=== PATIENT | female | born 1940 | race Caucasian/White ===

== ENCOUNTER 2017-07-05 14:10 | Emergency (ER) | payer OTHER ==
[~2017-07-05] VITALS: Ht 160 cm; Wt 75.0 kg
[2017-07-05 14:13] VITALS: TEMP 36.8; Ht 160 cm; Wt 75.0 kg
[2017-07-05] MEDS ORDERED: SODIUM CHLORIDE 0.9% 1000ML 1,000 ML IV STA (15:39)
[2017-07-05] MEDS ORDERED: KETOROLAC TROMETHAMINE 30 MG/ML VIAL IV STA (15:39)
[2017-07-05] MEDS ORDERED: INSDGI SC (16:15)
[2017-07-05] MEDS ORDERED: AMLO-110 PO (16:15)
[2017-07-05] MEDS ORDERED: BCTCR/30 TOP (16:15)
[2017-07-05] MEDS ORDERED: HYZ/10015 PO (16:15)
[2017-07-05] MEDS ORDERED: GLIP10TA9 PO (16:15)
[2017-07-05] MEDS ORDERED: METF-384 PO (16:15)
[2017-07-05] MEDS ORDERED: DOXY-300 PO (16:15)
[2017-07-05 16:26] LABS: MEAN CELL VOLUME 89.7 fL (80-100); MEAN CORPUSCULAR HEMOGLOBIN 30.9 pg (25-34); MEAN CORPUSCULAR HGB CONC 34.4 g/dl (32-36); PLATELET COUNT 333 K/uL (130-400); RED BLOOD COUNT 3.79 M/uL (4.2-5.4)
[2017-07-05 16:42] LABS: BUN/CREATININE RATIO 20.6 (10-20); C-REACTIVE PROTEIN 15.4 mg/dl (0-0.29); CALCIUM 9.3 mg/dl (8.5-10.1); CREATININE 1.3 mg/dl (0.60-1.20); POTASSIUM 4.1 mmol/L (3.5-5.1)
[2017-07-05 16:50] LABS: BASO % 0.3 %; BASO ABS # 0.05 K/uL (0-0.2); COMPLETE YES; EOS % 0.4 %; IG% 0.7 %; LYMPH % 9.5 %; LYMPH ABS # 1.67 K/uL (1.2-3.4); MONO % 4.7 %; NEUT % 84.4 %
[2017-07-05 16:51] LABS: THYROID STIMULATING HORMONE 0.858 uIu/ml (0.300-4.500)
--- NOTE | 2017-07-05 17:56 | EMERGENCY ROOM VISIT NOTE ---
History First contact with patient: 15:18 Chief Complaint: SWELLING TO EXTREMITY Stated Complaint: SWOLLEN ANKLES, SORETHROAT, LEG PAIN, LT ARM MOVEM History of Present Illness The patient is a 77 year old female who presents to the Emergency Room with complaints of bilateral wrist and ankle pain/swelling. Patient states her symptoms began about 3 months ago, starting with pain and a red rash over her right ankle. She began to have pain and swelling in her left ankle 2 weeks ago. She has seen her PCP who has done blood work including a Lyme titer which was negative. She also had an MRI of her right ankle, which did not show anything abnormal per the patient. Yesterday she saw her PCP and was started on doxycycline, of which she has had 3 doses. Since last night, patient has been having bilateral wrist and elbow pain and swelling as well. Patient states "I am here because I'm just not getting any better and I want some answers." Patient denies any headaches, vision changes, neck pain, chest pain, shortness of breath, dizziness or passing out, abdominal pain, back pain, nausea or vomiting, fevers or chills, changes in bowel habits, dysuria or urinary frequency. She has not had any other recent medication changes besides the doxycycline. Review of Systems A complete 10 point review of systems was reviewed with the patient with pertinent positives and negatives as per history of present illness. All else were negative. Social History Smoking Status: Never Smoker Current/Historical Medications Scheduled Amlodipine (Norvasc), 5 MG PO QAM Doxycycline (Monohydrate) (Doxycycline), 100 MG PO BID Glipizide (Glucotrol), 10 MG PO BID Hctz/Losartan (Hyzaar 25MG/100MG), 1 TAB PO QAM Insulin Glargine (Lantus), 21 UNITS SC QPM Metformin Hcl (Glucophage), 1,000 MG PO BID Mupirocin 2% (Bactroban 2%), 1 APPLN TOP BID Prednisone (Prednisone Tab), 1 TAB PO DAILY Physical Exam Vital Signs Date Time Temp Pulse Resp B/P (MAP) Pulse Ox O2 Delivery O2 Flow Rate FiO2 07/05/17 19:07 82 20 139/76 96 07/05/17 17:36 89 20 146/78 98 Room Air 07/05/17 16:09 89 07/05/17 14:13 36.8 101 18 119/63 97 Room Air Physical Exam CONSTITUTIONAL: No acute distress. Moderately dehydrated. Alert and oriented X 4 with normal affect. HEENT: Normocephalic, atraumatic. Pupils equal, round and reactive to light, EOMI. TMs normal. Pharynx normal. Dry mucous membranes. NECK: Supple, full active range of motion without discomfort. RESPIRATORY: Clear to auscultation bilaterally with no wheezing, crackles, rhonchi or stridor. Equal expansion bilaterally. CARDIOVASCULAR: Regular rate and rhythm, 3/6 systolic murmur, no rubs or gallops. Normal peripheral perfusion. No pitting edema. GASTROINTESTINAL: Soft, nontender, nondistended. Bowel sounds present in all quadrants. MUSCULOSKELETAL: There is mild swelling of the bilateral ankles and wrists, tender to palpation and with range of motion, blanching red rash noted, not hot to touch or erythematous. Limited range of motion of the left elbow due to pain , full flexion but unable to fully extend. Full range of motion of all other joints without discomfort. INTEGUMENTARY: No significant dermatologic conditions noted. NEUROLOGIC: Cranial nerves II-XII grossly intact. No focal neurologic deficits noted. Medical Decision & Procedures Laboratory Results 07/05/17 16:05 Red Blood Count 3.79, Mean Corpuscular Volume 89.7, Mean Corpuscular Hemoglobin 30.9, Mean Corpuscular Hemoglobin Concent 34.4, Mean Platelet Volume 9.0, Neutrophils (%) (Auto) 84.4, Lymphocytes (%) (Auto) 9.5, Monocytes (%) (Auto) 4.7, Eosinophils (%) (Auto) 0.4, Basophils (%) (Auto) 0.3, Neutrophils # (Auto) 14.76, Lymphocytes # (Auto) 1.67, Monocytes # (Auto) 0.82, Eosinophils # (Auto) 0.07, Basophils # (Auto) 0.05 07/05/17 16:05 Test 07/05/17 16:05 07/05/17 16:21 White Blood Count 17.50 K/uL (4.8-10.8) Red Blood Count 3.79 M/uL (4.2-5.4) Hemoglobin 11.7 g/dL (12.0-16.0) Hematocrit 34.0 % (37-47) Mean Corpuscular Volume 89.7 fL (80-100) Mean Corpuscular Hemoglobin 30.9 pg (25-34) Mean Corpuscular Hemoglobin Concent 34.4 g/dl (32-36) Platelet Count 333 K/uL (130-400) Mean Platelet Volume 9.0 fL (7.4-10.4) Neutrophils (%) (Auto) 84.4 % Lymphocytes (%) (Auto) 9.5 % Monocytes (%) (Auto) 4.7 % Eosinophils (%) (Auto) 0.4 % Basophils (%) (Auto) 0.3 % Neutrophils # (Auto) 14.76 K/uL (1.4-6.5) Lymphocytes # (Auto) 1.67 K/uL (1.2-3.4) Monocytes # (Auto) 0.82 K/uL (0.11-0.59) Eosinophils # (Auto) 0.07 K/uL (0-0.5) Basophils # (Auto) 0.05 K/uL (0-0.2) RDW Standard Deviation 40.5 fL (36.4-46.3) RDW Coefficient of Variation 12.4 % (11.5-14.5) Immature Granulocyte % (Auto) 0.7 % Immature Granulocyte # (Auto) 0.13 K/uL (0.00-0.02) Erythrocyte Sedimentation Rate 72 mm/hr (0-21) Anion Gap 8.0 mmol/L (3-11) Est Creatinine Clear Calc Drug Dose 35.7 ml/min Estimated GFR () 46.2 Estimated GFR (Non- 39.8 BUN/Creatinine Ratio 20.6 (10-20) Uric Acid 4.0 mg/dl (2.6-7.2) Calcium Level 9.3 mg/dl (8.5-10.1) Total Bilirubin 0.7 mg/dl (0.2-1) Direct Bilirubin 0.2 mg/dl (0-0.2) Aspartate Amino Transf (AST/SGOT) 44 U/L (15-37) Alanine Aminotransferase (ALT/SGPT) 79 U/L (12-78) Alkaline Phosphatase 143 U/L (45-117) Total Creatine Kinase 26 U/L (26-192) C-Reactive Protein 15.40 mg/dl (0-0.29) Total Protein 7.4 gm/dl (6.4-8.2) Albumin 3.0 gm/dl (3.4-5.0) Thyroid Stimulating Hormone (TSH) 0.858 uIu/ml (0.300-4.500) Anti-Streptolysin O Antibody Screen NEG IU/ml (<200 IU) Bedside Lactic Acid Venous 1.78 mmol/L (0.90-1.70) Medications Administered Medications (Trade) Dose Ordered Sig/Mary Route Start Time Stop Time Status Last Admin Dose Admin Sodium Chloride 1,000 ml @ 999 mls/hr Q1H1M STAT IV 07/05/17 15:39 07/05/17 16:39 DC 07/05/17 16:36 999 MLS/HR Ketorolac Tromethamine (Toradol Inj) 15 mg NOW STAT IV 07/05/17 15:39 07/05/17 15:44 DC 07/05/17 16:36 15 MG Prednisone (PredniSONE TAB) 40 mg NOW STAT PO 07/05/17 17:34 07/05/17 17:37 DC 07/05/17 17:42 40 MG Medical Decision CC: Patient presenting with complaint of joint pain Interpretation of Labs: Leukocytosis, no anemia, no significant loculated abnormalities, elevated BUN and creatinine, slightly elevated liver enzymes, normal lactic acid level, significantly elevated inflammatory markers, normal CPK. Differential Diagnosis: Includes, but not limited to autoimmune/rheumatologic disorder, polyarthralgias, polymyalgia, dehydration, electrolyte abnormalities, less likely septic joint or joint infection, Lyme disease. Medication Reconciliation: I attest that I have personally reviewed the patient' s current medication list. Vital signs review: I reviewed the patient's vital signs and interpret them as follows: T: Afebrile; BP: Normotensive; HR: Mildly tachycardic; RR: Within normal limits; Pulse Ox: Within normal limits on room air. Blood pressure screening: The patient was found to have normal blood pressure on screening and does not require follow-up for repeat blood pressure check. Summary: Patient was evaluated at bedside, history of physical exam performed. Patient is alert and in no acute distress, resting calmly in the stretcher. Patient has mild swelling and pain of the bilateral wrists and ankles, left elbow, worse with flexion and extension of the joints. She is afebrile with stable vital signs. She has no other complaints. Records requested from patient's PCP including labs and recent visit. These were reviewed. Orders were placed at bedside for labs including inflammatory markers and lactic acid, IV fluids for hydration, IV Toradol for pain. Labs reviewed as above, significant for leukocytosis that is slightly worse from labs yesterday, slightly elevated BUN and creatinine concerning for dehydration, and significantly elevated inflammatory markers, no baseline for comparison. I suspect patient's symptoms are inflammatory in nature, given the chronicity of her symptoms, she warrants continued follow-up with her PCP and may benefit from referral to a sprue cutting press operator. I also believe the patient would benefit from a short course of steroids to treat her inflammatory process. Patient discussed with Dr. Michel, who agrees with my assessment and plan. Patient reassessed multiple times throughout ED stay, she does report some improvement in her pain after Toradol. Tachycardia resolving after IV fluid bolus. Patient was given her first dose of prednisone in the ED. Patient was updated on all results and plan for treatment with steroids and close follow-up with her PCP, as well as rheumatology referral. She was also given return precautions should her symptoms progress or worsen, she verbalized understanding. Prescription for prednisone burst, 20 mg daily for 4 more days was sent to pharmacy. Patient was instructed to monitor her blood glucose levels very closely while on steroids. Patient was discharged home in stable condition and ambulatory. Impression Primary Impression: Polyarthralgia Departure Information Dispostion Home / Self-Care Condition GOOD Prescriptions Prednisone (Prednisone Tab) 20 Mg Tab 1 TAB PO DAILY for 4 Days, #4 TAB 2 TABS DAILY FOR 2 DAYS, THEN 1 TAB DAILY FOR 2 DAYS, THEN 1/2 TAB DAILY FOR 2 DAYS. Prov: Jelena Recinos CRNP 07/05/17 Referrals Payam Hilario M.D. (PCP) Kalia Lloyd M.D. Patient Instructions ED Joint Pain, [facility] Additional Instructions Take the prednisone as prescribed once daily for the next 4 days. Take with food. It is important that you monitor your blood sugars closely while taking this, and avoid any foods or drinks that are high in sugar or carbohydrates while you are on this medication. Drink plenty of fluids to stay well hydrated. You may take Tylenol 1000 mg every 8 hours as needed for pain. Do not take more than 3000 mg in 24 hours. You may alternate ice and heat to your joints to help with pain and swelling. You should follow-up with your PCP in the next 1-2 days. Call for an appointment. You should follow-up with a sprue cutting press operator (Dr. Lloyd) for further workup. Call for an appointment. Please return to the emergency department for worsening symptoms, including fevers or feeling ill, persistent vomiting, if any of your joints become red or hot to touch, or any other concerns.
[2017-07-05] MEDS ORDERED: PRED20TA2 PO (18:12)
[2017-07-05 19:07] VITALS: BP 139/76; PULSE 82; O2SAT 96
--- NOTE | 2017-07-05 22:54 | EMERGENCY ROOM VISIT NOTE ---
ED Visit Note First contact with patient: 15:18 I have personally seen and evaluated the patient with the PA. I agree with the diagnosis and management decisions and have been personally involved in the case. Please see JONY Martinez notes for further details of the history, physical and visit.
== END 2017-07-05 19:10 | disposition home or self-care (01) ==
LOC: C.EDB 14:12
DX: M25.50 Pain in unspecified joint (principal); Z79.899 Other long term (current) drug therapy